=== PATIENT | male | born 1970 | race Two or more races ===

== ENCOUNTER 2020-02-11 20:04 | Emergency (ER) | payer OTHER ==
[2020-02-11] MEDS ORDERED: Octyl 2-Cyanoacrylate 1 Tube TOP ONE (20:35)
--- NOTE | 2020-02-11 20:36 | EDM.PDOC ---
ED HPI GENERAL MEDICAL PROBLEM - General Chief Complaint: Laceration Stated Complaint: RIGHT FINGER LACERATION Time Seen by Provider: 02/11/20 20:29 - History of Present Illness INITIAL COMMENTS - FREE TEXT/NARRATIVE: History of present illness: [] The patient had his finger strip when it was pulled out of a pipe. He has an laceration to the right hand. It is on the ring finger. He has a flap laceration on the ulnar side of the middle segment of the ring finger and a vertical 2 cm laceration on the volar side of the ring finger. No deep structures are involved. There is no loss of function. He requests no sutures but I told the flap on the ulnar side of the finger might be lost with movement if we did not tack it down but he was willing to take that risk because he wanted more mobility. He requested glue or Steri-Strips. Tetanus shot was definitely less than 10 years and he thinks about 5 years ago. Review of systems: As per history of present illness and below otherwise all systems reviewed and negative. Past medical history: As per history of present illness and as reviewed below otherwise noncontributory. Surgical history: As per history of present illness and as reviewed below otherwise noncon tributory. Social history: No reported history of drug or alcohol abuse. Family history: As per history of present illness and as reviewed below otherwise noncontributory. Physical exam: Constitutional - well developed, well-nourished and in no acute distress HEENT - normocephalic, no evidence of trauma - external nose and mouth normal - no mass in neck and no JVD - mucosae moist EYES - full EOM, PERRL, no icterus - no evidence of inflammation, injection, or drainage Respiratory - no respiratory distress, equal bilateral expansion, lungs clear to auscultation and no abnormal lung sounds Cardiovascular - Regular Rhythm with S1 and S2 appreciated and no murmur, gallop or rub. Peripheral pulses symmetrically normal in all four extremities GI - abdomen soft without distension or organomegaly - normal bowel sounds - no guard or rebound Musculoskeletal no gross deformity of long bones or joints - no tenderness, swelling or edema Neurologic - Alert and oriented times four - CN II-XII grossly intact - motor sensory and coordination symmetrically normal Psychiatric - appropriate mood and affect with normal thought content Hematologic - No petechiae or purpura - mucosa appropriate color and sclera not pale - normal nail bed color and refill Integument -patient is as above described. No rash or evidence of trauma - normal turgor Diagnostics: [] Therapeutics: [] Impression: [] Plan: [] Definitive disposition and diagnosis as appropriate pending reevaluation and review of above. R ring finger Pain Score (Numeric/FACES): 5 - Related Data Allergies Allergy/AdvReac Type Severity Reaction Status Date / Time No Known Allergies Allergy Verified 02/11/20 20:35 Home Meds: Home Meds . [No Known Home Meds] 02/11/20 [History] ED ROS GENERAL - Review of Systems Review Of Systems: Comprehensive ROS is negative, except as noted in HPI. ED EXAM, SKIN/RASH Exam: See Below Text/Narrative:: The physical exam is in my HPI ED SKIN PROCEDURES - Laceration/Wound Repair Right Hand Appearance: Superficial Distal NVT: Neuro & Vascular Intact Saline Irrigation (cc's): 100 Exploration/Debridement/Repair: Wound Explored Closed with: Wound Adhesive Lac/Wound length In cm: 4 Progress/Comments: Skin was approximated after irrigation with saline and then Dermabond applied at the patient request. I thought the flap itself should have sutures but he refused. Course - Vital Signs Last Recorded V/S: Last Vital Signs Temp 96.1 F L 02/11/20 20:21 Pulse 67 02/11/20 20:21 Resp 17 02/11/20 20:21 BP 120/76 02/11/20 20:21 Pulse Ox 96 02/11/20 20:21 - Orders/Labs/Meds Meds: Medications Discontinued Medications Generic Name Dose Route Start Last Admin Trade Name Armaan PRN Reason Stop Dose Admin Octyl Cyanoacrylate 1 applic 02/11/20 20:35 02/11/20 20:51 Dermabond Advance TOP 02/11/20 20:36 1 applic ONETIME ONE Administration Departure - Departure Time of Disposition: 20:57 Disposition: Home, Self-Care 01 Condition: Good Clinical Impression: Laceration of right hand - Discharge Information Instructions: Wound Care, Adult Referrals: PCP,None [Primary Care Provider] - Forms: ED Department Discharge Additional Instructions: The following information is given to patients seen in the emergency department who are being discharged to home. This information is to outline your options for follow-up care. We provide all patients seen in our emergency department with a follow-up referral. The need for follow-up, as well as the timing and circumstances, are variable depending upon the specifics of your emergency department visit. If you don't have a primary care physician on staff, we will provide you with a referral. We always advise you to contact your personal physician following an emergency department visit to inform them of the circumstance of the visit and for follow-up with them and/or the need for any referrals to a consulting specialist. The emergency department will also refer you to a specialist when appropriate. This referral assures that you have the opportunity for follow-up care with a specialist. All of these measure are taken in an effort to provide you with optimal care, which includes your follow-up. Under all circumstances we always encourage you to contact your private physician who remains a resource for coordinating your care. When calling for follow-up care, please make the office aware that this follow-up is from your recent emergency room visit. If for any reason you are refused follow-up, please contact the [facility] Emergency Department at and asked to speak to the emergency department charge nurse. [facility] - Primary Care [address] [place] [address] [address] Sepsis Event Note (ED) - Focused Exam Vital Signs: Vital Signs Temp Pulse Resp BP Pulse Ox 02/11/20 20:21 96.1 F L 67 17 120/76 96
== END 2020-02-11 21:30 | disposition home or self-care (01) ==
LOC: MW.ED 20:04
DX: S61.214A Laceration without foreign body of right ring finger without damage to nail, initial encounter (principal); W26.8XXA Contact with other sharp object(s), not elsewhere classified, initial encounter
CPT/HCPCS: 12002; 99282; A9270